=== PATIENT | female | born 1975 | race Caucasian/White ===

== ENCOUNTER 2017-02-13 23:42 | Observation (INO) | payer SELFPAY ==
--- NOTE | ~2017-02-13 | CN ---
Consultation Report [facility] [address] [place]. [address] NAME: WISAM RODRÍGUEZ : 77 STATUS : ADM Maximilian PAT#: [id number] AGE: 41 ADM/REG DATE : 02/14/17 MR#: [id number] REPORT SERV DATE: 02/15/17 DICTATED BY: DEMETRA ALTMAN III DATE: 02/14/17 REPORT STATUS : Draft TRANSCRIBED BY: MODL DATE: 02/14/17 CONSULTATION DATE OF CONSULTATION: 02/14/2017 HISTORY OF PRESENT ILLNESS: The patient is a 41-year-old morbidly obese, diabetic white female with a greater than [id number] of a large callus on the medial aspect of the right great toe. She has had this [facility] a couple of years ago and was very displeased with the results that left her with an ulceration that was difficult to heal. She is now admitted with questionable cellulitis in the right lower extremity with some mild redness and minimal tenderness in the right lower extremity. She is diabetic and poorly controlled since she has not been able to get medications due to socioeconomic issues. The patient has had the callused area for greater than twenty years. PAST MEDICAL HISTORY: She has a history of a diabetes, poor control, neuropathy in her feet resulting from the callus and diabetes. She has a history of tonsillectomy. She has had skin tag removed from the right side of her labia in the remote past. MEDICATIONS: Her home medications are aspirin, Flexeril, Neurontin, Levemir, Humalog, and lisinopril. ALLERGIES: SHE IS ALLERGIC TO PENICILLIN AND STATINS. SOCIAL HISTORY: Negative for alcohol abuse, but smokes with six pack years noted. PHYSICAL EXAMINATION: GENERAL: She is a morbidly obese, white female, in no acute distress with minimal pain in the right lower extremity. HEENT: Unremarkable. NECK: Supple. CHEST: Clear. ABDOMEN: Obese. EXTREMITIES: Grossly anatomic. Right lower extremity showed to have mild erythema in the distal 1/4 of the right lower extremity, mostly mild tenderness around the Achilles tendon with extremely minimal erythema. She has a callus over the medial aspect of the right great toe that is 1.5 x 1.2 x 0.4 in size with a hemorrhagic center that is dark, but not particularly tender, but neuropathy would make this determination less reliable. She does have positive pedal pulses with minimal edema in her foot. There is significant neuropathy. LABORATORY DATA: The patient's white count was 10,500, hemoglobin and hematocrit 14.7 and 42.8, platelet count 233,000. Her electrolytes were fine and her creatinine 0.73 with a BUN of 15. IMPRESSION: She has very mild cellulitis secondary to callus with erosion into the subcu of the great toe, which will be topically treated. Rule out phlebitis. She has diabetes Consultation Report [address] [facility] [address] NAME: WISAM RODRÍGUEZ : 77 STATUS : ADM Maximilian PAT#: [id number] AGE: 41 ADM/REG DATE : 02/14/17 MR#: [id number] REPORT SERV DATE: 02/15/17 DICTATED BY: DEMETRA ALTMAN III DATE: 02/14/17 REPORT STATUS : Draft TRANSCRIBED BY: MODTami DATE: 02/14/17 mellitus, poor control, likely related to her obesity which is morbid. The recommendation will be topical treatment of the callus or some Santyl enzymatic agent to help soften and debride the callused area and follow up in the [facility] for a trimming of her callus after her more acute process has been relieved. Certainly, I think p.o. antibiotics would be adequate for short-term coverage for potential cellulitis and topical therapy with pending ultrasound of the leg. Offloading shoe prescriptions given to the patient to try to help prevent continued trauma to the right great toe and use a softening agent to try to keep the callus from becoming more erosive. Certainly, diabetic control is an integral part of her treatment plan as well as weight loss. I have discussed with the patient, with Dr. Steele, the risk of neglect and potential of limb loss from her poor diabetic management and callus with the erosion through the skin that could precipitate a limb threatening process resulting in amputation or sepsis. Follow up in the [facility] will be planned and prescription for the offloading diabetic shoes left with the patient. Santyl will be used as a softening agent and she can use castor oil after the Santyl has been depleted to keep the callus soft and more pliable. RB/ANDREW Demetra Altman III, M.D. / [id number] CC: Ebenezer Steele Jr, MD [facility]
--- NOTE | ~2017-02-13 | DS ---
Discharge Summary [facility] [id number] [place]. [address] NAME: WISAM RODRÍGUEZ : 77 STATUS : DIS Maximilian PAT#: [id number] AGE: 41 ADM/REG DATE : 02/14/17 MR#: [id number] REPORT SERV DATE: 02/16/17 DICTATED BY: JR. STEELE WILLIAM JOHN DATE: 02/15/17 REPORT STATUS : Draft TRANSCRIBED BY: ANDREW DATE: 02/15/17 ADMISSION DATE: 02/14/2017 DISCHARGE DATE: 02/15/2017 DISCHARGE DIAGNOSES: Include: 1. Right lower extremity cellulitis. 2. Callus on right great toe. 3. Insulin-depended diabetes mellitus with neuropathy with hemoglobin A1c of 13.6 with long-term insulin use. 4. Hypertension. 5. Morbid obesity with body mass index of 56.5. OPERATIONS/ PROCEDURES AND TREATMENTS: Include: 1. Chest x-ray done 02/13/2017, which showed low lung volumes without acute cardiopulmonary process identified. 2. Right foot x-ray done 02/13/2017 which showed mild edema of dorsal soft tissue. No other injury identified. 3. Venous Doppler ultrasound of the right lower extremity done 02/14/2017, which showed no evidence of deep vein thrombosis within the right lower extremity. CONSULTING PHYSICIAN: Dr. Altman of [facility]. DISCHARGE MEDICATIONS: Include: 1. Aspirin 81 mg orally daily. 2. Santyl ointment daily to the callus. 3. Neurontin 600 mg orally daily. 4. Levemir insulin 50 units twice a day. 5. Premeal Humalog insulin 15 units subcu q.a.c. 6. Level 2 sliding scale insulin in addition to premeal insulin. 7. Lisinopril 5 mg daily. 8. Flexeril 10 mg orally twice a day as needed. 9. Keflex 500 mg orally three times a day for seven days. HOSPITAL COURSE: The patient is a 41-year-old white female with a history of poorly controlled diabetes mellitus with neuropathy who presented to the emergency room with right foot redness, swelling, and pain. The patient has history of right toe cellulitis in the past, debrided by Dr. Altman in 2012. At that time, it grew MSSA. The patient said a few days prior she had swelling primarily of the lateral aspect of the right foot with associated red dorsal surface, redness, warmth, and tenderness to palpation. She had fever up to 99.9. There is no purulent drainage or skin breakdown. The patient has a long-term callus on this foot likely from an ill-fitting shoe. On initial exam, her temperature is 98.5, heart rate 100, respiratory rate of 16, blood pressure 189/91. Exam was remarkable for left lower extremity to be warm and perfused without clubbing, cyanosis, or edema. Right lower extremity had a right great toe with large callus on the medial aspect with some surrounding erythema but no Discharge Summary [facility] [place]. [address] NAME: WISAM RODRÍGUEZ : 77 STATUS : DIS Maximilian PAT#: [id number] AGE: 41 ADM/REG DATE : 02/14/17 MR#: [id number] REPORT SERV DATE: 02/16/17 DICTATED BY: JR. STEELE WILLIAM JOHN DATE: 02/15/17 REPORT STATUS : Draft TRANSCRIBED BY: ADNREW DATE: 02/15/17 palpable underlying fluid collection or crepitus. She did have diffuse erythema and mild swelling of the dorsal aspect of the forefoot and lymphangitic spread up the posterior aspect of the right calf. For complete details, please see Dr. Jimenez's excellent dictated history and physical. The patient was admitted to the Clinical Decision Unit. She had an ultrasound of the right lower extremity which showed no evidence of clot. Blood cultures x2 were done, were sterile at this time. The patient was initially placed on vancomycin and cefepime, this was quickly discontinued and changed to Kefzol. The patient had a procalcitonin of 0.2. She had decreased swelling of the leg on this regimen, decreased erythema and pain, and was felt to be stable for discharge. She was seen by Dr. Altman who recommended Santyl and changing her shoe regarding this callus. The patient to follow up with Dr. Altman. Regarding her poorly controlled diabetes mellitus type 2, patient was seen by [facility] and it appears she has been running out of insulin and is unable to afford it, therefore, has been rationing her insulin. Arrangements are being made to provide barbara insulin at this time. In addition, she will be placed on premeal Humalog in addition to her basal bolus regimen. The remainder of the patient's health problems remained stable. She will follow up with "Paige" at the [facility]. She will also follow up with Dr. Altman of the [facility] in 7-14 days. For discharge exam and laboratory, please see daily progress note. DISCHARGE DIET: Regular. ACTIVITY: As tolerated. WJF/MODL Ebenezer Steele Jr, MD / [id number] CC: Ebenezer Steele Jr, MD
--- NOTE | ~2017-02-13 | HP ---
History And Physical [facility] [place] [address] [facility] [place]. [address] NAME: WISAM MCINTYRE : 77 STATUS : ADM Maximilian PAT#: [id number] AGE: 41 ADM/REG DATE : 02/14/17 MR#: [id number] REPORT SERV DATE: 02/14/17 DICTATED BY: LAVELLE MATT DATE: 02/14/17 REPORT STATUS : Draft TRANSCRIBED BY: MODTami DATE: 02/14/17 DATE OF ADMISSION: 02/14/2017 POINT OF ENTRY: [facility] Emergency Department. PRIMARY CARE PHYSICIAN: Nurse practitioner, Paige Iraheta. CHIEF COMPLAINT: Right foot redness, pain, and swelling. HISTORY OF PRESENT ILLNESS: Ms Mcintyre is a 41-year-old female with history of uncontrolled insulin-dependent diabetes mellitus type 2 with diabetic neuropathy with a recent hemoglobin A1c of 13.6, as well as hypertension, morbid obesity, who presents to the emergency department today with a few day history of right foot redness, swelling, and pain. The patient has had a previous history of right great toe cellulitis requiring bedside debridement by Dr. Altman in 2012. At that time, her wound cultures grew MSSA. The patient states that she has had some outpatient debridement at the [facility] done on this toe a few years ago as well. She states that beginning a few days ago, she started to notice some mild swelling primarily in the lateral aspect of her right foot with associated redness over the dorsal surface of the right foot as well as some associated warmth and tenderness on palpation. The patient became very concerned when she started to notice spread of the redness up the posterior aspect of her calf. She does report some low-grade fevers, a fever as high as 99.9 degrees Fahrenheit last night. She denies any purulent drainage or skin breakdown from the right foot. Initial evaluation in the emergency department was notable for stable vital signs. White count was within normal limits. Her blood sugar was elevated at 246. Lactic acid is normal. Plain films of the right foot were unremarkable for concern for osteomyelitis, she was given a dose of Rocephin and admitted to the Hospitalist Service for further evaluation and management. The patient denies any chills, night sweats, chest pain, shortness of breath, abdominal pain, nausea, vomiting, diarrhea, constipation, dysuria, melena, hematochezia, hemoptysis, or hematemesis. She does report that her right great toe is chronically erythematous from previous debridements, but the changes to the other aspects of her foot including the lateral aspect and the dorsal aspect are new. REVIEW OF SYSTEMS: Comprehensive review of systems otherwise negative unless listed in history of present illness. PREVIOUS MEDICAL HISTORY: 1. Uncontrolled insulin-dependent diabetes mellitus, type 2. Hemoglobin A1c of 13.6. 2. Diabetic neuropathy. History And Physical [address] [address] NAME: WISAM MCINTYRE : 77 STATUS : ADM Maximilian PAT#: [id number] AGE: 41 ADM/REG DATE : 02/14/17 MR#: [id number] REPORT SERV DATE: 02/14/17 DICTATED BY: LAVELLE MATT DATE: 02/14/17 REPORT STATUS : Draft TRANSCRIBED BY: ANDREW DATE: 02/14/17 3. Morbid obesity. 4. Hypertension. SURGICAL HISTORY: 1. Tonsillectomy. 2. Subcutaneous debridement of the right great toe x2. ALLERGIES: TO PENICILLIN AND STATINS WELL WASP VENOM. HOME MEDICATIONS: 1. Aspirin 81 mg daily. 2. Flexeril 10 mg b.i.d. p.r.n. 3. Neurontin 600 mg q.h.s. 4. Insulin Levemir 50 units b.i.d. 5. Insulin sliding scale. 6. Lisinopril 5 mg q.h.s. SOCIAL HISTORY: She is a former smoker, quit about one year ago. Denies any alcohol. Denies any illicits. FAMILY MEDICAL HISTORY: Mother with breast cancer and diabetes. Father with diabetes. LABS AND IMAGIN. White count is 10.5, hemoglobin is 14.7, hematocrit is 42.8, and platelet count is 233. 2. Sodium is 137, potassium 3.9, chloride 101, carbon dioxide 25, BUN 15, creatinine 0.73, glucose is 246 and on recheck it is 290, calcium is 8.6, protein is 7.5, albumin is 3.5, bilirubin is 0.2, ALT is 33, AST 20, and alkaline phosphatase is 92. 3. Lactic acid is 1.7. PHYSICAL EXAMINATION: VITAL SIGNS: Temperature is 98.5 degrees Fahrenheit, pulse is 100, respirations 16, saturating 98% on room air, and blood pressure 189/91. On recheck, blood pressure now 163/91. GENERAL: The patient is awake, alert, in no acute distress. Resting comfortably. She is a morbidly obese, female. Family is at bedside. HEENT: Atraumatic and normocephalic. Moist mucous membranes. Pupils are equal, round, reactive to light and accommodation. Extraocular eye movements intact. No scleral icterus. NECK: No jugular venous distention. No carotid bruits. CARDIAC: Regular rate and rhythm. No murmurs, rubs, or gallops. Normal S1, normal S2. LUNGS: Clear to auscultation bilaterally. No wheezes, rhonchi, or crackles. ABDOMEN: Obese, soft, nontender, and nondistended. Good bowel sounds. No rebound, guarding, or rigidity. EXTREMITIES: Left lower extremity is warm and perfused. No cyanosis, clubbing, or edema. Right lower extremity, the right great toe has a very large callus on the medial aspect with some surrounding erythema, but no palpable underlying fluid collection or crepitus. She does have some diffuse erythema and mild swelling over the dorsal aspect of her forefoot with some lymphangitic spread up the posterior aspect of her right calf. Again no palpable History And Physical [address] [address] NAME: WISAM MCINTYRE : 77 STATUS : ADM Maximilian PAT#: [id number] AGE: 41 ADM/REG DATE : 02/14/17 MR#: [id number] REPORT SERV DATE: 02/14/17 DICTATED BY: LAVELLE MATT DATE: 02/14/17 REPORT STATUS : Draft TRANSCRIBED BY: MODL DATE: 02/14/17 fluid collection, skin breakdown, or pustular drainage noted. SKIN: Warm and dry except for noted above. PSYCH: Affect appropriate. NEURO: Alert and oriented x3. Cranial nerves 2 through 12 grossly intact. Speech is normal. Gait not assessed. ASSESSMENT AND PLAN: Ms Mcintyre is a 41-year-old female with a history of uncontrolled insulin-dependent diabetes mellitus type 2 with a previous history of right great toe cellulitis, who presents back with a few day history of right foot erythema, swelling, and pain consistent with recurrent right lower extremity cellulitis. PROBLEM LIST: 1. Right lower extremity cellulitis with lymphangitic spread. 2. Uncontrolled insulin-dependent diabetes mellitus, type 2 with hyperglycemia. 3. Uncontrolled hypertension. 4. Morbid obesity. PLAN: 1. Right lower extremity cellulitis. We will initially place the patient on vancomycin as well as cefepime given her uncontrolled diabetes and risk for polymicrobial infection. Of note, her previous wound culture did grow MSSA. We will follow up blood cultures. We will also consult Dr. Altman of Wound Care for possible repeat bedside debridement of her right great toe. Followup those wound cultures. 2. Uncontrolled insulin-dependent diabetes mellitus type 2 with hyperglycemia. We will continue the patient's home long-acting insulin, place her on level 3 insulin scale. Consult domestic housekeeper for assistance. 3. Hypertension. Continue the patient's home lisinopril. Place her on IV hydralazine p.r.n. 4. DVT prophylaxis. Lovenox subcu. CODE STATUS: The patient wished to be full code. ANGEL LUISB/MODL Lavelle Matt MD / [id number] CC: Ebenezer Steele Jr, MD
[~2017-02-13 23:42] MED LIST: BACDS PO; CERON-DM OR; DOXYCYC MONO100 M1 PO; FLAG500TAB PO; FLEX PO; FLEXERIL5 MG PO; GLUCPH PO; INSULIN NOVOLIN R; LEVAQUIN750 MG PO; LEVEMFLXPN SC; NEUR300 PO; PCET PO; SILVADENE1 % TOP; ULTRAM50 MG OR; ULTRAM50 PO; [UNRECOGNIZED DRUG - OTHER]; [UNRECOGNIZED DRUG - REMARK]
[2017-02-13 23:50] LABS: BASOPHILS 0.8 %; BASOPHILS ABSOLUTE 0.08 10/3/uL (0.0-0.16); EOSINOPHILS 2.2 %; EOSINOPHILS ABSOLUTE 0.23 10/3/uL (0.0-0.53); ER CBC TAT 0 Hrs 00 Mins; HEMATOCRIT 42.8 % (36.0-48.0); HEMOGLOBIN 14.7 g/dL (12.0-16.0); IMMATURE GRANULOCYTES 0.5 %; IMMATURE GRANULOCYTES ABSOLUTE 0.05 10/3/uL (0.0-0.11); LYMPHOCYTES 34.7 %; LYMPHOCYTES ABSOLUTE 3.63 10/3/uL (0.67-4.30); MEAN CORPUS HGB CONC 34.3 g/dL (32.0-36.0); MEAN CORPUSCULAR HEMOGLOB 31.3 pg (26.0-34.0); MEAN CORPUSCULAR VOLUME 91.3 fL (80-100); MONOCYTES 9.6 %; NEUTROPHILS 52.2 %; NEUTROPHILS ABSOLUTE 5.46 10/3/uL (2.02-8.40); PLATELET COUNT 233 10/3/uL (150-400); RED CELL COUNT 4.69 10/6/uL (4.0-5.6); WHITE BLOOD CELLS 10.5 10/3/uL (4.5-10.5)
[2017-02-13 23:52] LABS: MANUAL DIFF NO %
[2017-02-14 00:05] LABS: ALBUMIN 3.5 G/DL (3.5-5.0); BUN (BLOOD UREA NITROGEN) 15 MG/DL (6-23); CALCIUM, SERUM 8.6 MG/DL (8.5-10.4); CHLORIDE, SERUM 101 MMOL/L (96-112); CO2 (CARBON DIOXIDE) 25 MMOL/L (24-34); CREATININE 0.73 MG/DL (0.55-1.02); GFR AFRICAN AMERICAN 119 ML/MIN (>=60); GFR NON AFRICAN AMERICAN 103 ML/MIN (>=60); POTASSIUM, SERUM 3.9 MMOL/L (3.5-5.3); SGPT(ALT) 33 U/L (5-65); SODIUM, SERUM 137 MMOL/L (135-148); TOTAL BILIRUBIN 0.2 MG/DL (0-1.2); TOTAL PROTEIN 7.5 G/DL (6.0-8.5)
[2017-02-14 00:06] LABS: A/G RATIO 0.9 (0.7-1.9); ALKALINE PHOSPHATASE 92 U/L (45-117); GLUCOSE, SERUM 246 MG/DL (60-99); SGOT(AST) 20 U/L (5-40)
[2017-02-14] MEDS ORDERED: NEUR600 PO (01:06)
[2017-02-14] MEDS ORDERED: FLEX PO (01:06)
[2017-02-14] MEDS ORDERED: LEVEMIR SC (01:07)
[2017-02-14] MEDS ORDERED: ASAB PO (01:07)
[2017-02-14] MEDS ORDERED: HUMALOG SC (01:07)
[2017-02-14] MEDS ORDERED: PRIN5 PO (01:07)
[2017-02-14 01:14] LABS: PARTIAL THROMBO TIME 28.7 SEC (22.5-37.2); PROTIME (NOT ORD) 13.2 SEC (12.0-14.5)
[2017-02-14 03:20] LABS: ASCORBIC ACID (UR NOT ORDER) NEG (NEG); BILIRUBIN, URINE NEGATIVE (NEG); ER URINALYSIS TAT 0 Hrs 00 Mins; KETONE, URINE TRACE MG/DL (NEG); LEUKOCYTE ESTERASE(NOT OR NEG (NEG); NITRITE (URINE) NEG (NEG); WBC (NOT ORDERED) (RFLEX) 1 (0-5)
[2017-02-14 12:24] LABS: BASOPHILS 0.8 %; BASOPHILS ABSOLUTE 0.07 10/3/uL (0.0-0.16); EOSINOPHILS 2.3 %; EOSINOPHILS ABSOLUTE 0.21 10/3/uL (0.0-0.53); HEMATOCRIT 40.1 % (36.0-48.0); HEMOGLOBIN 13.6 g/dL (12.0-16.0); IMMATURE GRANULOCYTES 0.3 %; IMMATURE GRANULOCYTES ABSOLUTE 0.03 10/3/uL (0.0-0.11); LYMPHOCYTES 32.3 %; LYMPHOCYTES ABSOLUTE 2.97 10/3/uL (0.67-4.30); MEAN CORPUS HGB CONC 33.9 g/dL (32.0-36.0); MEAN CORPUSCULAR HEMOGLOB 30.8 pg (26.0-34.0); MEAN CORPUSCULAR VOLUME 90.9 fL (80-100); MEAN PLATELET VOLUME 9.8 fL (9.2-13.0); MONOCYTES 7.7 %; MONOCYTES ABSOLUTE 0.71 10/3/uL (0.21-1.20); NEUTROPHILS 56.6 %; PLATELET COUNT 218 10/3/uL (150-400); RBC DISTRIBUTION WIDTH 13.2 % (12.0-16.0); RED CELL COUNT 4.41 10/6/uL (4.0-5.6); WHITE BLOOD CELLS 9.2 10/3/uL (4.5-10.5)
[2017-02-14 12:28] LABS: MANUAL DIFF NO %
[2017-02-14 12:37] LABS: BUN (BLOOD UREA NITROGEN) 14 MG/DL (6-23); CALCIUM, SERUM 8.4 MG/DL (8.5-10.4); CHLORIDE, SERUM 101 MMOL/L (96-112); CO2 (CARBON DIOXIDE) 25 MMOL/L (24-34); CREATININE 0.62 MG/DL (0.55-1.02); GFR AFRICAN AMERICAN 131 ML/MIN (>=60); GFR NON AFRICAN AMERICAN 113 ML/MIN (>=60); GLUCOSE, SERUM 279 MG/DL (60-99); POTASSIUM, SERUM 4.1 MMOL/L (3.5-5.3); SODIUM, SERUM 136 MMOL/L (135-148)
[2017-02-15 06:31] LABS: BUN (BLOOD UREA NITROGEN) 12 MG/DL (6-23); CALCIUM, SERUM 8.7 MG/DL (8.5-10.4); CHLORIDE, SERUM 100 MMOL/L (96-112); CO2 (CARBON DIOXIDE) 26 MMOL/L (24-34); CREATININE 0.62 MG/DL (0.55-1.02); GFR AFRICAN AMERICAN 131 ML/MIN (>=60); GFR NON AFRICAN AMERICAN 113 ML/MIN (>=60); GLUCOSE, SERUM 230 MG/DL (60-99); SODIUM, SERUM 136 MMOL/L (135-148)
[2017-02-15 06:32] LABS: POTASSIUM, SERUM 4.5 MMOL/L (3.5-5.3)
[2017-02-15 07:59] LABS: PROCALCITONIN 0.21 ng/mL (<0.5)
[2017-02-15] MEDS ORDERED: K500 PO (10:53)
[2017-02-15] MEDS ORDERED: FLUCON150 PO ×2 (10:54)
[2017-02-15] MEDS ORDERED: NOVOLOG SC (10:56)
== END 2017-02-15 15:52 | disposition home or self-care (01) ==
LOC: ER 23:42 → CDU1 02-14 01:50
PROVIDERS: Internal Medicine; Nurse Practitioner Acute Care
DX: L03.115 Cellulitis of right lower limb (principal); E11.65 Type 2 diabetes mellitus with hyperglycemia; E66.01 Morbid (severe) obesity due to excess calories; I10 Essential (primary) hypertension; Z90.89 Acquired absence of other organs; Z79.4 Long term (current) use of insulin; Z98.890 Other specified postprocedural states; Z88.0 Allergy status to penicillin; Z79.82 Long term (current) use of aspirin; Z79.899 Other long term (current) drug therapy; Z87.891 Personal history of nicotine dependence; Z80.3 Family history of malignant neoplasm of breast; Z83.3 Family history of diabetes mellitus; Z68.43 Body mass index [BMI] 50.0-59.9, adult
CPT/HCPCS: 71010; 73630-RT; 80048; 80053; 81001; 82962; 83605; 84145; 85025; 85610; 85730; 87040; 93971; 96372; 96374; 96375; 96376; 99285; A9270-GY; G0378; J0690; J0692; J3370